=== PATIENT | male | born 1965 | race Caucasian/White ===

== ENCOUNTER 2017-06-06 11:00 | Emergency (ER) | payer SELFPAY ==
[~2017-06-06] VITALS: Ht 182.9 cm; Wt 97.5 kg
[2017-06-06 11:04] VITALS: Ht 182.9 cm; Wt 97.5 kg
== END 2017-06-06 12:30 | disposition left against medical advice (07) ==
LOC: E/R 11:00
DX: Z53.21 Procedure and treatment not carried out due to patient leaving prior to being seen by health care provider (principal)